=== PATIENT | male | born 1955 | race Caucasian/White ===

== ENCOUNTER → 2017-04-27 | Outpatient (CLI) | payer OTHER ==
--- NOTE | 2017-04-28 05:57 | PAP/PSG TECHNICIAN REPORT ---
[facility] Parachute Repairer Polysomnogram Report Study name: None Report date: 04/28/2017 Study date: 04/27/2017 Referring Physician: Zacarias Sawyer M.D. Name: GALE HUFF Interpreting Physician: Grant Sawyer M.D. Date of : 1955 Parachute Repairer: NADIR Vernon. Sex: Male Age: 61 StudyType: PSG Weight: 297 lbs Height: 61 years, Height 6' 2.5" Neck Circum: BMI: 37.62 Medications: Allopurinol 300mg, Indomethacin 50mg, Lisinopril-HCTZ 10-12.5mg, Zyrtec-D 5-120mg Patient History Study started on room air with no ETCO2 monitoring in room #6. 61 yr old male here tonight for a possible split psg. He complains of loud disruptive snoring. He states that he only sleeps about 5 hours a night and that he does fall asleep in the recliner in the early evening. His regular sleep time is 2am until 7am. His ESS=7/24. Neck circ=17.75 inches. Parameters Monitored NPSG: E1-M2, E2-M1, Fp1-M2, Fp2-M1, F3-M2, F4-M2, F4-M1, C3-M2, C4-M2, C4-M1, O1-M2, O2-M2, O2-M1, T3-M2, T4-M1, P3-M2, P4-M1, CHIN1, CHIN2, HR, EKG, Legs, PFLOW, SNOR, FLOW, CFLOW, Tidal Volume, THOR, ABDO, SpO2, PLTH, CPRESS, ETCO2 Wave, ETCO2, pH Sleep Architecture Sleep Stages Time at Lights Off 11:00:49 PM STAGES Time (min.) TST (%) Time at Lights On 5:37:49 AM Wake 147.5 -- Total Recording Time (TRT) 397.00 min. N1 54.5 22 Total Sleep Period (TSP) 295.5 min. N2 156.5 63 Total Sleep Time (TST) 249.5min. N3 9.0 4 Awake Time 147.5 min. REM 29.5 12 Wake after Sleep Onset 93.0 min. Sleep Efficiency (SE) 63 % Sleep Onset Latency (LOR) 54.5 min. Number of Stage 1 Shifts None Awakenings 34 Stage Changes 154 Number of REM periods 4 REM 29.5 12 REM Latency 125.5 min. NREM 220.0 88 Body Position Analysis Supine Right Left Side Prone Vertical Total Sleep Time (min.) 151.4 94.8 73.0 167.87 0.0 49.1 Total Sleep Time (%) 33% 38% 29% 67 0% N/A% Total Sleep Time REM (min.) 0.0 29.5 0.0 None 0.0 0.0 Total Sleep Time NREM (min.) 81.6 65.3 73.0 None 0.0 0.0 Intermittent Wake (min.) 69.8 13.1 15.6 None 0.0 49.1 Total Sleep Period (%) 35% None None None None None Arousals Myoclonus (PLM) * Events Count Index Events Count Index Spontaneous 14 3 Events Awake (PLMW) 255 103.7 Respiratory 66 16.6 Events Asleep w/ Arousal (PLMA) 31 7.5 PLM 29 7 Events Asleep w/o Arousal (PLMS) 190 45.7 Snoring 4 1 Total Asleep 221 53.1 Total 113 27 Total 476 72 Respiratory Analysis * CA OA MA CH H RERA Total Count 0 98 0 0 74 1 172 Index 0.0 23.6 0.0 0 17.8 0 41.6 Mean Duration 0.0 20.5 0.0 0.00 22.0 16.5 21.1 Longest Duration 0.0 96.1 0.0 0.00 0.0 16.5 96.1 Respiratory Event Summary Total Supine ~Supine Right Left Prone REM NREM Apneas Count 98 93 5 1 4 N/A 0 98 Index 23.6 68 2 0.6 3.3 N/A 0 27 Hypopneas (4% Desat) Count 74 18 56 22 34 N/A 8 66 Index 17.8 13.2 20 13.9 27.9 N/A 16.3 18.0 Apneas & All Hypopneas Count 172 111 61 23 38 N/A 8 164 Index 41.4 82 22 15 31 N/A 16.3 44.7 Respiratory Events (Efficiency Miner+All Hyp+RERA) Count 172 111 62 23 39 N/A 8 164 Index 41.6 82 22 14.6 32.0 N/A 16.3 45.0 Respiratory Related Arousal Count 66 111 15 1 14 N/A 0 69 Index 16.6 40 5 1 12 N/A 0 19 Snoring Analysis Supine Right Left Prone REM NREM Total Snore duration 21.4 min Snores count 99 396 425 N/A 89 831 920 Snore mean duration 1.4 Sec Snores index 73 251 349 N/A 181.0 226.6 221.2 TST with snoring (%) 8.6% Desaturation Event Summary: Minimum %SpO2 Event Count Mean/Min/Max Duration(sec.) Desaturation Index % Time In Bed > 90 84 28.0 / 11.3 / 60.0 119.3 11.9 86 - 90 158 26.2 / 10.8 / 59.0 39.0 68.2 81 - 85 11 24.5 / 12.8 / 49.5 9.3 19.9 76 - 80 0 N/A 0.0 0.1 71 - 75 0 N/A 0.0 0.0 66 - 70 0 N/A 0.0 0.0 61 - 65 0 N/A 0.0 0.0 56 - 60 0 N/A 0.0 0.0 51 - 55 0 N/A 0.0 0.0 < 50 0 N/A 0.0 0.0 Total REM NREM Awake <50% 0.0 min. 0.0 min. 0.0 min. 0.0 min. 51 - 60% 0.0 min. 0.0 min. 0.0 min. 0.0 min. 61 - 70% 0.0 min. 0.0 min. 0.0 min. 0.0 min. 71 - 80% 0.2 min. 0.0 min. 0.2 min. 0.0 min. 81 - 90% 313.8 min. 27.2 min. 195.5 min. 91.1 min. 91 - 100% 42.3 min. 2.2 min. 24.2 min. 15.8 min. Average 88 86 87 88 Minimum SpO2 80 80 80 82 Desaturation Event Index 29.2 30.5 36.8 18.3 # Desat. Events below 89% 183 15 128 40 Time(%) with Saturation below 89% 67.5 6.8 41.8 18.9 Time(min.) with Saturation below 89% 240.3 24.2 148.9 67.3 Time (mins) REM (mins) NREM (mins) % of TST SpO2 Below 90% 149 15 N134 81.0 SpO2 Below 88% 65 0 0 56 Heart Rate Analysis Min (bpm) Max (bpm) Average (bpm) Awake 50 127 64 NREM 48 127 58 REM 53 81 66 Overall 48 127 59 Supplemental O2 Values Minimum O2 level: None Value Start Time End Time Parachute Repairer Comments Mr. Huff slept in the right, left and supine positions. No cardiac arrhythmia noted. PLM's were noted. No bruxism noted. Snoring was noted and scored as a 4 on a scale of 1 through 5. (0=no snoring, 5=snoring loud enough to be heard through a closed door or down the [address] way) He did not use the restroom during the night. He stated that he did not sleep as well as when at home. He only had 1.4 hours of sleep by 1:30 am and did not qualify for a split night study. He did not fall asleep until 11:55am and his AHI was <40 at that time. Also he stated that he only sleeps 5 hours. The final report will be interpreted and signed by a sleep physician. The completed physician report will then be placed in the patient medical record. Therapy (cm H2O) 0 TIB (min.) 397.0 TST (min.) 249.5 Sleep Onset (min.) 54.5 REM Onset From Sleep (min.) 125.5 Sleep Efficiency % 63 Wakefulness (%) 37 Wakefulness (min.) 147.5 NREM 1 (%) 22 NREM 1 (min.) 54.5 NREM 2 (%) 63 NREM 2 (min.) 156.5 NREM 3 (%) 4 NREM 3 (min.) 9.0 REM (%) 12 REM (min.) 29.5 # Arousals 113 Arousal Index 27 # Snore 920 Snore Index 221.2 AHI 41.4 AHI Supine 82 AHI Non-Supine 22 NREM AHI 44.7 REM AHI 16.3 RDI 41.6 # Obstructive Apnea 98 # Central Apnea 0 # Mixed Apnea 0 # Hypopneas 74 RERAs 1 Total Respiratory Events 179 Time Below SpO2 89% (min.) 173.1 Mean NREM SpO2 (%) 87 Mean REM SpO2 (%) 86 Mean Sleep SpO2 (%) 87 Min NREM SpO2 (%) 80 Min REM SpO2 (%) 80 Position Supine (min.) 151.4 Position Non-supine (min.) 167.9 LM Index Sleep 53.1 LM Index NREM 58.6 LM Index REM 12.2 Mean Heart Rate (bpm) 59 Min Heart Rate (bpm) 48
--- NOTE | 2017-05-01 12:32 | POLYSOMNOGRAPH REPORT ---
REFERRING PERSON: Dr. Shayla Sawyer. [employer] SET UP OPERATOR: Merle Crabtree. Mr. Marroquin is a 61-year-old male sent to the sleep lab for a split night sleep study. He complains of loud disruptive snoring. He is only sleeping about 5 hours at night; however, he admits to falling asleep in his recliner in the early evening fairly regularly. His regular sleep time is 2:00 a.m. to 7:00 a.m. His [place] Sleepiness Scale score on the evening of this study is 7. BMI is 37.62. Following the technical and digital specifications of the [place] [employer] (AASM) a standard diagnostic polysomnogram was performed monitoring EEG, EOG, EMG (chin and leg deviations), oxygen saturation, body position, digital video, respiratory effort and airflow. The sleep Stage and event scoring was based on the AASM Manual for the Scoring of Sleep and Associated Events 2007 edition. Apneas are defined as a drop in the peak thermal sensor excursion by >90% of baseline for at least 10 seconds. Hypopneas were scored using the 4% oxygen desaturation rule (4A-[employer]) and a decrease in the nasal pressure excursions by >30% of baseline for at least 10 seconds. Respiratory effort-related arousal (RERA's) is defined as a sequence of breaths lasting at least 10 seconds characterized by increasing respiratory effort or flattening of the nasal pressure waveform leading to an arousal from sleep when the sequence of breaths does not meet criteria for an apnea or hypopnea. Apnea Hypopnea index (AHI) is defined as the number of apneas and hypopneas occurring in an hour of sleep. Respiratory disturbance index (RDI) is defined as the number of apneas, hypopneas, and RERA's occurring in an hour of sleep. Mr. Marroquin's total sleep period time was 295.5 minutes. Total sleep time was 249.5 minutes. Sleep efficiency was 63%. Latency to sleep onset was 54.5 minutes. Wake after sleep onset was 93 minutes. Total non-REM sleep time was 220 minutes. He spent 22% of that time in N1 sleep, 63% in N2 sleep and 4% in N3 sleep. This is abnormal non-REM sleep architecture with a propensity for superficial sleep. REM latency was 125.5 minutes. Total REM sleep time was 29.5 minutes or 12% of total sleep time. There were 113 cortical arousals from sleep. Fourteen of these arousals were spontaneous, 66 were due to respiratory events, 29 due to periodic limb movements of sleep and 4 were due to snoring. There were 221 periodic limb movements noted on this test. Limb movement index was 53.1. Limb movement with arousal index was 7.5. There were no central but 98 obstructive apneas on this test. There were no mixed apneas. There were 74 hypopneas and 1 RERA. Apnea-hypopnea index was 41.4 consistent with severe sleep apnea. Supine AHI was 82, REM AHI was 16.3. There were 920 snoring events recorded. Total sleep time with snoring was 8.6%. Mean saturation was 88%, which is low. Lowest recorded saturation was 80%. Saturations were less than 89% for 240.3 minutes of recording time. There was no cardiac ectopy noted on this study. Heart rates ranged from a low of 48 beats per minute to a high of 127 beats per minute during sleep. Per the technologist's note, as this patient had only slept 1.4 hours by 1:30 a.m., he was not split on this study. IMPRESSION AND PLAN: Mr. Marroquin is a 61-year-old male with evidence of severe sleep apnea, worse in supine sleep as well as significant nocturnal hypoxemia on this study. 1. This patient would likely benefit from positive airway pressure therapy. He should return to the sleep laboratory for a full night titration, and then based on those results, be started on equipment at home. A download from his machine can be reviewed in 1 month both to check compliance as well as AHI, and further pressure adjustments can occur at that time. 2. CPAP titration study will also ensure that this patient's nocturnal hypoxemia resolves with CPAP alone and that he does not need nocturnal oxygen. Should he needs nocturnal oxygen on ideal pressure, he can be titrated to appropriate oxygen levels in the sleep laboratory.
== END | disposition home or self-care (01) ==
LOC: C.NEUR 21:00
PROVIDERS: ATTEND Family Medicine
DX: G47.33 Obstructive sleep apnea (adult) (pediatric) (principal); G47.10 Hypersomnia, unspecified; I10 Essential (primary) hypertension; E66.9 Obesity, unspecified; R06.83 Snoring